=== PATIENT | male | born 1945 | race Caucasian/White ===

== ENCOUNTER 2018-05-05 19:22 | Observation (INO) | payer MEDICARE, BC ==
[2018-05-05 20:14] LABS: #Eosinphils 0.1 thou/uL (0.0-0.7); #Lymphocytes 2.2 thou/uL (1.20-3.40); #Monocytes 0.7 thou/uL (0.11-0.59); #Neutrophils 4.3 thou/uL (1.40-6.50); %Basophils 0.1 % (0.0-1.0); %Eosinophils 0.8 % (0.0-10.0); %Lymphocytes 30.4 % (21.0-51.0); %Monocytes 9.4 % (0.0-10.0); %Neutrophils 59.3 % (42.0-75.0); Hemoglobin 12.6 g/dL (14.0-18.0); Mean Corpuscular HGB CONC 32.5 g/dL (32.0-36.0); Mean Corpuscular Hemoglobin 26.1 pg (27.0-31.0); Mean Corpuscular Volume 80.3 fL (78.0-98.0); Platelet Count 167 thou/uL (130-400); RBC Distribution Width 13.9 % (11.5-14.5); Red Blood Cell (RBC) Count 4.83 mill/uL (4.70-6.10); White Blood Cell (WBC) Count 7.3 thou/uL (4.8-10.8)
[2018-05-05 20:35] LABS: ALT (SGPT) 16 U/L (8-55); AST (SGOT) 18 U/L (5-34); Albumin 3.9 g/dL (3.4-4.8); Alkaline Phosphatase 77 U/L (40-150); Anion Gap 13 mmol/L (10-20); BUN (Urea Nitrogen) 44 mg/dL (8.4-25.7); Bilirubin, Total 0.7 mg/dL (0.2-1.2); CK (CPK) 186 U/L (30-200); Calc. Creatinine Clearance 0 mL/min (70-130); Calcium 9.6 mg/dL (7.8-10.44); Carbon Dioxide 29 mmol/L (23-31); Chloride 105 mmol/L (98-107); Estimated GFR-MDRD 29; Globulin 3.3 g/dL (2.4-3.5); Glucose 135 mg/dL (83-110); Potassium 3.7 mmol/L (3.5-5.1); Protein, Total 7.2 g/dL (5.8-8.1); Sodium 143 mmol/L (136-145)
[2018-05-05 20:38] LABS: Troponin I 0.012 ng/mL (< 0.028)
--- NOTE | 2018-05-05 21:24 | RAD ---
PORTABLE CHEST: 05/05/18 HISTORY: Chest pain. Nausea and dizziness. COMPARISON: 07/24/11. Elevation left hemidiaphragm is more pronounced today. Consider hemidiaphragm paralysis. Cardiomegaly is seen with prominent aortic calcification. AICD leads are again noted. Linear atelectatic change i n the left lower lung. No evidence of focal infiltrate. The vascular markings are upper normal withou t overt congestion or edema. IMPRESSION: Elevated left hemidiaphragm with left lung atelectasis. POS: [facility]
[2018-05-06] MEDS ORDERED: Nitroglycerin 0.4 MG TAB (25 Tab Bottle) PO PRN (00:40)
[2018-05-06] MEDS ORDERED: Ondansetron HCl/PF 4 MG/2 ML Vial IVP PRN (00:42)
[2018-05-06] MEDS ORDERED: Acetaminophen 325 MG TAB PO PRN (00:42)
[2018-05-06 00:50] LABS: Troponin I 0.019 ng/mL (< 0.028)
[2018-05-06 01:31] VITALS: BMI 32.1
[2018-05-06 03:04] LABS: Troponin I 0.017 ng/mL (< 0.028)
[2018-05-06 03:05] LABS: #Eosinphils 0.1 thou/uL (0.0-0.7); #Lymphocytes 1.8 thou/uL (1.20-3.40); #Monocytes 0.6 thou/uL (0.11-0.59); #Neutrophils 5.3 thou/uL (1.40-6.50); %Basophils 0.3 % (0.0-1.0); %Eosinophils 0.8 % (0.0-10.0); %Lymphocytes 22.7 % (21.0-51.0); %Monocytes 8.1 % (0.0-10.0); %Neutrophils 68.1 % (42.0-75.0); Mean Corpuscular Hemoglobin 26.5 pg (27.0-31.0); Mean Corpuscular Volume 80.4 fL (78.0-98.0); Mean Platelet Volume 9.1 fL (7.4-10.4); Platelet Count 147 thou/uL (130-400); RBC Distribution Width 13.9 % (11.5-14.5); Red Blood Cell (RBC) Count 4.51 mill/uL (4.70-6.10); White Blood Cell (WBC) Count 7.8 thou/uL (4.8-10.8)
[2018-05-06 03:41] LABS: Anion Gap 13 mmol/L (10-20); BUN (Urea Nitrogen) 40 mg/dL (8.4-25.7); Calc. Creatinine Clearance 48 mL/min (70-130); Calcium 9.2 mg/dL (7.8-10.44); Carbon Dioxide 26 mmol/L (23-31); Cardiac Risk 3.1 (Less than 4.5); Chloride 106 mmol/L (98-107); Cholesterol 93 mg/dl (< 200 Desired); Estimated GFR-MDRD 33; Glucose 226 mg/dL (83-110); HDL Cholesterol 30 mg/dL (>60 Neg Risk); LDL Cholesterol, Calculated 43 mg/dL; Potassium 3.4 mmol/L (3.5-5.1); Sodium 142 mmol/L (136-145); Triglycerides 102 mg/dL (Less than 150)
[2018-05-06] MEDS ORDERED: HumaLOG 300 UNITS/3 ML VIAL SC PRN ×2 (08:18)
[2018-05-06] MEDS ORDERED: cloNIDine 0.1 MG TAB PO PRN (08:18)
[2018-05-06] MEDS ORDERED: Dextrose 50% Abboject 50 ML SYRINGE SLOW IVP PRN (08:18)
[2018-05-06] MEDS ORDERED: Dextrose 5% in Water 1,000 ML IV PRN (08:18)
[2018-05-06] MEDS ORDERED: Aspirin 325 MG TAB PO SCH ×2 (09:00→11:15)
[2018-05-06] MEDS ORDERED: Heparin 5,000 UNITS/ML VIAL SC SCH (09:00)
--- NOTE | 2018-05-06 09:37 | HP ---
PRIMARY CARE PHYSICIAN: The patient does not have a primary care physician. CHIEF COMPLAINT: Blood pressure fluctuating widely. HISTORY OF PRESENT ILLNESS: Mr. Bolden is a pleasant 73-year-old gentleman that has a history of is chemic cardiomyopathy as well as a history of ventricular arrhythmias in the past, diabetes mellitus, hypertension, and chronic kidney disease. He says that he checks his blood pressure pretty much cynthia and he noticed in the last couple of days that his blood pressure has been fluctuating widely. He noticed this morning that his blood pressure had gone away up into the 180s to 190s. He took a sublingual nitroglycerin and he said it went down, but then shortly after that it started rising agai n. He says he felt a little bit nauseated and he says he got a little dizzy, but he thinks that is b ecause he was nervous about his blood pressure and he felt he better find out what was going on and f or this reason, he came to the emergency room for evaluation. He denies emphatically that he had any type of chest pain or chest pressure. He has not felt short of breath. He has not had any PND, nor orthopnea and he has not had any increasing lower extremity edema. He says that he saw Dr. Ayon back in January. At that time, he had an echocardiogram in which there was no significant change in t he last 5 years. He denies feeling any palpitations and he says that his defibrillator has not fired . He denies any change in his diet. He denies any over the counter medications, especially no cold preparations or nasal sprays and he denies any increase in salty foods. REVIEW OF SYSTEMS: All systems were reviewed and are negative except for that mentioned in the histo ry of present illness. PAST MEDICAL HISTORY: Significant for ischemic cardiomyopathy, ventricular arrhythmias, chronic kidn ey disease stage 3, coronary artery disease, hypertension, diabetes mellitus, and hyperlipidemia. PAST SURGICAL HISTORY: He has had an AICD and a stent placed. ALLERGIES: PENICILLIN. SOCIAL HISTORY: He is , has 2 children. He lives alone. He is a nonsmoker, nondrinker. FAMILY HISTORY: Significant for diabetes. MEDICATIONS: Include vitamin D, nitroglycerin sublingual, calcitriol 0.25 mcg daily, Humalog insulin 10 units a day, Toujeo 63 units daily, clonidine 0.1 as needed, Coreg 25 mg twice a day, aspirin 325 mg daily, hydralazine 10 mg twice a day, Demadex 10 mg daily, Imdur 30 mg daily, Crestor 20 mg daily . PHYSICAL EXAMINATION: GENERAL: He is alert and oriented. He appears to be in no acute distress. VITAL SIGNS: Blood pressure was 139/63; however, he says it has gone up to 180 this morning, heart r ate is 84, respiratory rate of 14, temperature is 97.5. HEENT: Pupils are equal, round, and reactive. Extraocular muscles are intact. Sclerae are anicteri c. Throat: There is no erythema, no exudates. NECK: No adenopathy, no bruits. LUNGS: Clear to auscultation. There was no wheezing, no rales. CARDIOVASCULAR: He had a normal S1, S2. There was no S3 or S4. No murmurs, clicks or rubs. ABDOMEN: Soft, nontender, nondistended. Positive for bowel sounds. There is no rebound, no guardin g. EXTREMITIES: No clubbing, cyanosis. He did have some changes of chronic venous stasis with some trish k discoloration of the lower extremities and trace edema. He has got palpable dorsalis pedis pulses. NEUROLOGICALLY: The exam is grossly nonfocal. His muscle strength is intact. SKIN/INTEGUMENT: As previously mentioned, there is some chronic venous stasis changes, but no signif icant rash. LABORATORY RESULTS: Sodium was 143, potassium 3.7, chloride is 105, CO2 is 29, BUN is 40, creatinine 2.0, glucose is 226. Troponin was 0.017. White blood cell count 7.8, hemoglobin 12, hematocrit is 36.2, platelet count is 147. Cholesterol is 93, LDL 43, HDL of 30. IMAGING: He had an EKG, which was electronically paced atrial and the heart rate was [address] specific [address] wave changes and a chest x-ray showing an elevated left hemidiaphragm and left lung atele ctasis. ASSESSMENT AND PLAN: This is a pleasant 73-year-old gentleman who presents to the emergency room wit h wide fluctuations in his blood pressure. It is unclear after discussing with the patient what the cause of his change in blood pressure pattern would be due to. He is slightly overweight with a BMI of 32. He says that his blood pressure is normally elevated in the a.m. hours; therefore, it is poss ible that he could have some sleep apnea which has gone undiagnosed. Also, cerebrovascular disease a s a possibility if he had some significant carotid artery stenosis, sometimes this can cause fluctuat ions in blood pressure. Therefore, we will get an ultrasound of the carotids and we will also have abner is defibrillator interrogated in the event that he had some type of arrhythmia, which may have caused some fluctuations in the blood pressure. If all these look good, then he can likely be discharged [facility] with encouragement to establish a primary care physician and have an outpatient sleep study done and also to help in adjustment of his blood pressure medication.
[2018-05-06] MEDS ORDERED: hydrALAZINE 10 MG TAB PO SCH ×2 (11:15→17:00)
[2018-05-06] MEDS ORDERED: Torsemide 10 MG TAB PO SCH (11:15)
[2018-05-06] MEDS ORDERED: Carvedilol 25 MG TAB PO SCH ×2 (11:15→21:00)
--- NOTE | 2018-05-06 11:42 | ULT ---
CAROTID ULTRASOUND WITH NINO SCALE AND DOPPLER DUPLEX COLOR FLOW IMAGING SPECTRAL ANALYSIS PERFORMED: CLINICAL INDICATION: Fluctuating blood pressure. COMPARISON: 07/25/11 carotid ultrasound exam. FINDINGS: There is scattered moderate, bilateral atherosclerotic calcification of the carotid arteries. PEAK SYSTOLIC VELOCITY (CM/S): Right CCA 50 Left CCA 80 Right ICA 104 Left ICA 77 There is antegrade flow within the visualized bilateral vertebral arteries. IMPRESSION: 1. No hemodynamically significant stenosis of the right internal carotid artery. 2. No hemodynamically significant stenosis of the left internal carotid artery. POS: [facility]
[2018-05-06] MEDS ORDERED: HumaLOG 300 UNITS/3 ML VIAL SC SCH (12:00)
[2018-05-06 15:22] VITALS: BP 134/60; TEMP 98.8
[2018-05-06] MEDS ORDERED: Rosuvastatin 20 MG TAB PO SCH (21:00)
[2018-05-06] MEDS ORDERED: INSULIN GLARGINE HUM REC ANLOG SQ SCH (21:00)
[2018-05-06] MEDS ORDERED: Insulin Glargine 50 UNITS in Pre-Filled Syringe 1 EACH SC SCH (21:00)
[2018-05-06] MEDS ORDERED: Calcitriol 0.25 MCG CAP PO SCH (21:00)
--- NOTE | 2018-05-07 00:16 | DIS ---
DATE OF ADMISSION: 05/06/2018 DATE OF DISCHARGE: 05/06/2018 PRIMARY CARE PHYSICIAN: None. DISCHARGE DISPOSITION: Home. DISCHARGE DIAGNOSES: 1. Hypertension, uncontrolled. 2. History of chronic systolic heart failure. 3. History of ischemic cardiomyopathy. 4. Ventricular arrhythmia. 5. Chronic kidney disease stage 3. 6. Hypertension. 7. Diabetes mellitus, type 2. 8. Hyperlipidemia. DISCHARGE MEDICATIONS: Clonidine was increased from 0.1 mg in the a.m. to 0.1 mg twice a day. He is to continue torsemide 10 mg daily, Crestor 20 mg at bedtime, Nitrostat p.r.n., Imdur 30 mg daily, __ __ q.p.m., Apresoline 10 mg twice a day, NovoLog insulin 10 units t.i.d., vitamin D3 2000 units daily , Carvedilol 25 mg twice a day, calcitriol 0.25 mcg daily, and aspirin 325 mg a day. CODE STATUS: FULL CODE. ALLERGIES: PENICILLINS. HOSPITAL COURSE: Mr. Bolden is a pleasant 73-year-old gentleman who presented to the emergency room with concerns of fluctuating blood pressure. He was relatively asymptomatic as a result of these fl uctuations, but was concerned and as a result, came to the ER for evaluation. He had a reported eval uation by Dr. Ayon and at that time had an echo and was told that there was no significant change . While he was here in the observation unit, we interrogated his defibrillator in which there was no significant arrhythmia. It did demonstrate that his defibrillator was closed ____ battery life and would need a change and also he had a carotid Doppler which was negative for any significant stenosis . His blood pressure actually was within a relatively reasonable range during his hospital stay. Th e highest was 180/82 around 09:30 in the morning, but then dropped to 134/60 in the late afternoon. We will be adding a dose of clonidine in the evening before bedtime. 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 He was encouraged to establish a primary care physician in order to accomplish this and was subsequently discharged home.
[2018-05-07] MEDS ORDERED: Rosuvastatin 20 MG TAB PO SCH (09:00)
[2018-05-07] MEDS ORDERED: Calcitriol 0.25 MCG CAP PO SCH (09:00)
[2018-05-07] MEDS ORDERED: Aspirin 325 MG TAB PO SCH (09:00)
[2018-05-07] MEDS ORDERED: Torsemide 10 MG TAB PO SCH (09:00)
== END 2018-05-06 17:21 | disposition home or self-care (01) ==
LOC: EEVIPCON 19:22 → ERS 19:22 → 2SW 23:15
PROVIDERS: ADMIT Hospitalist; ATTEND Hospitalist
DX: I13.0 Hypertensive heart and chronic kidney disease with heart failure and stage 1 through stage 4 chronic kidney disease, or unspecified chronic kidney disease (principal); I50.22 Chronic systolic (congestive) heart failure; E11.22 Type 2 diabetes mellitus with diabetic chronic kidney disease; N18.3 Chronic kidney disease, stage 3 (moderate); I25.10 Atherosclerotic heart disease of native coronary artery without angina pectoris; I25.5 Ischemic cardiomyopathy; E78.5 Hyperlipidemia, unspecified; Z79.82 Long term (current) use of aspirin; Z79.4 Long term (current) use of insulin; Z79.899 Other long term (current) drug therapy; Z88.0 Allergy status to penicillin
CPT/HCPCS: 71045; 80048; 80053; 80061; 82550; 82553; 82962; 83880; 84484 ×3; 85025 ×2; 93005; 93880; 94760; 99285; G0378; 36415; 36416

== ENCOUNTER 2018-12-07 22:20 | Emergency (ER) | payer MEDICARE, BC ==
[~2018-12-07 22:20] MED LIST: Calcium Chloride 1 GM/10 ML Abboject SYRINGE ONE; Dextrose 50% Abboject 50 ML SYRINGE ONE; EPINEPHrine 1 MG/10 ML Abboject SYRINGE ONE; Sodium Bicarb 50 MEQ/50 ML Abboject 8.4% SYRINGE ONE
--- NOTE | 2018-12-08 07:41 | ER ---
DATE OF SERVICE: 12/07/2018 ADDENDUM: Please refer to the patient's electronic medical record for further details of his visit. In summary, the patient presented with CPR in progress. EMS reports that the patient found 911 himself with a complaint of shortness of breath. By that time of their arrival, the patient was unresponsive with agonal respirations only. Shortly thereafter, he stopped breathing entirely and became pulseless. On arrival, the patient had been defibrillated several times for ventricular fibrillation. Additionally, the patient has AICD in place, which fired several times en route as well. The patient had received medications per protocol. On primary survey, the patient had an LMA in place. Breath sounds were audile bilaterally with positive-pressure ventilation. Pulses were present in extremities only with CPR. Secondary survey reveals no evidence of traumatic injury with the exception of an abrasion on the right lateral chest wall, which is likely resulted an EMS securing device. At no point during the resuscitation attempt, the patient regain spontaneous circulation. Medications were given as documented in the nursing code record. The patient was intubated for definitive airway management given concern for hypoxic respiratory arrest. This did not improve the patient's condition. The patient's family was notified shortly after their arrival. The patient was pronounced at 2243 hours. Job ID: [id number]
== END 2018-12-07 22:43 | disposition expired ==
LOC: ERS 22:20
DX: I46.9 Cardiac arrest, cause unspecified (principal); E11.22 Type 2 diabetes mellitus with diabetic chronic kidney disease; I12.9 Hypertensive chronic kidney disease with stage 1 through stage 4 chronic kidney disease, or unspecified chronic kidney disease; N18.9 Chronic kidney disease, unspecified; E78.5 Hyperlipidemia, unspecified; I25.2 Old myocardial infarction; Z87.891 Personal history of nicotine dependence
CPT/HCPCS: 31500; 36416; 92950; 96374; 96375; J0171